=== PATIENT | male | born 1975 | race American Indian/Alaskan Native ===

== ENCOUNTER 2017-09-17 07:54 | Outpatient (CLI) | payer OTHER ==
--- NOTE | 2017-09-17 09:38 | XRay Report ---
XRAY RIGHT KNEE 4 THREE VIEWS: 09/17/17 CLINICAL: Right knee pain. FINDINGS: No fracture or dislocation. However, mild varus deformity and slight lateral subluxation of the tibia. The medial and lateral joint spaces are normal. Small medial and lateral osteophytes. Patellofemoral osteoarthritis with a large superior and lateral osteophyte.No joint effusion.A few benign calcifications in the soft tissues. IMPRESSION: Osteoarthritis with greater involvement of the patellofemoral joint. Mild varus deformity and slight lateral subluxation of the tibia.
== END 2017-09-17 07:55 | disposition home or self-care (01) ==
LOC: SPVIMAG 07:54 → EDBD 07:54 → SPVIMAG 07:55
PROVIDERS: ATTEND Orthopaedic Surgery
DX: M17.11 Unilateral primary osteoarthritis, right knee (principal); M21.161 Varus deformity, not elsewhere classified, right knee; M25.861 Other specified joint disorders, right knee